=== PATIENT | female | born 1940 | race Caucasian/White ===

== ENCOUNTER 2017-03-19 16:20 | Emergency (ER) | payer OTHER, MEDICARE ==
[~2017-03-19] VITALS: Ht 165.1 cm; Wt 58.4 kg
[2017-03-19] MEDS ORDERED: TRAVATAN Z5 ML BOTH EYES (17:16)
[2017-03-19] MEDS ORDERED: DUONEB 2.5-0.5 M3 ML AEROSOL (17:16)
[2017-03-19] MEDS ORDERED: ARICEPT5 MG PO (17:17)
[2017-03-19] MEDS ORDERED: SINGULAIR10 MG PO (17:18)
[2017-03-19] MEDS ORDERED: SYNTHROID50 MCG PO (17:18)
[2017-03-19] MEDS ORDERED: NAMENDA10 MG PO (17:19)
[2017-03-19] MEDS ORDERED: DITROPAN XL15 MG PO (17:20)
[2017-03-19] MEDS ORDERED: SEROQUEL12.5 MG PO (17:20)
[2017-03-19] MEDS ORDERED: VITAMIN D31000 UNIT PO (17:21)
[2017-03-19 19:15] VITALS: BP 90/65
== END 2017-03-19 19:49 | disposition home or self-care (01) ==
LOC: EME 16:20
DX: R60.0 Localized edema (principal); I34.1 Nonrheumatic mitral (valve) prolapse; F03.90 Unspecified dementia, unspecified severity, without behavioral disturbance, psychotic disturbance, mood disturbance, and anxiety; Z88.0 Allergy status to penicillin
CPT/HCPCS: 93971; 99281; 99283

== ENCOUNTER 2017-03-23 14:47 | Emergency (ER) | payer OTHER, MEDICARE ==
[~2017-03-23] VITALS: Ht 165.1 cm; Wt 43.0 kg
[~2017-03-23 14:47] MED LIST: ARICEPT5 MG PO; DITROPAN XL15 MG PO; DUONEB 2.5-0.5 M3 ML AEROSOL; NAMENDA10 MG PO; SEROQUEL12.5 MG PO; SINGULAIR10 MG PO; SYNTHROID50 MCG PO; TRAVATAN Z5 ML BOTH EYES; VITAMIN D31000 UNIT PO
[2017-03-23 15:53] LABS: HEMATOCRIT 39.7 % (36.0-46.0); MCH 30.4 PG (29.0-34.0); MCHC 32.5 G/DL (30.0-36.0); MCV 93.6 FL (83-99); MEAN PLAT.VOLUME 9.2 uM^3 (9.5-12.4); PLATELET COUNT 267 K/uL (156-360); RBC DIS.WIDTH-CV 14.8 % (11.8-14.6); RED BLOOD COUNT 4.24 M/uL (3.80-5.20); WHITE BLOOD COUNT 10.3 K/uL (4.1-10.2)
[2017-03-23 16:17] LABS: INTER. NORMALIZED RATIO 1.1; PROTHROMBIN TIME 12.2 SEC (10.2-12.9)
[2017-03-23 16:20] LABS: CHLORIDE 109 mEq/L (99-109); SODIUM 144 mEq/L (136-147)
[2017-03-23 16:22] LABS: GLUCOSE 101 mg/dL (70-99)
[2017-03-23 16:23] LABS: ANION GAP 12 MEQ/L (2-14)
[2017-03-23 16:24] LABS: TOTAL BILIRUBIN 0.7 mg/dL (0.0-1.0)
[2017-03-23 16:25] LABS: ALKALINE PHOSPHATASE 33 IU/L (3-129)
[2017-03-23 16:26] LABS: GFR ESTIMATE (CALCULATED) > 59 mL/min/
[2017-03-23 16:27] LABS: UREA NITROGEN (BUN) 14 mg/dL (9-23)
[2017-03-23 20:21] VITALS: BP 119/81
== END 2017-03-23 20:23 ==
LOC: EME → EDBD 14:47 → EME 20:23
PROVIDERS: Emergency Medicine
DX: K92.2 Gastrointestinal hemorrhage, unspecified (principal); R11.10 Vomiting, unspecified; F03.90 Unspecified dementia, unspecified severity, without behavioral disturbance, psychotic disturbance, mood disturbance, and anxiety; C80.1 Malignant (primary) neoplasm, unspecified; Z91.013 Allergy to seafood; Z88.8 Allergy status to other drugs, medicaments and biological substances; Z88.1 Allergy status to other antibiotic agents; Z88.0 Allergy status to penicillin
CPT/HCPCS: 80053; 83605; 85027; 85610; 85730; 86850; 86870; 86900; 86901; 86905; 86920; 99281; 99285; J7030